=== PATIENT | female | born 1995 | race Caucasian/White ===

== ENCOUNTER 2017-07-02 18:13 | Emergency (ER) | payer SELFPAY, OTHER ==
[2017-07-02 19:12] LABS: URINE HCG POC HCG NEGATIVE (Negative)
== END 2017-07-02 19:13 | disposition home or self-care (01) ==
LOC: ER 18:13
DX: L02.01 Cutaneous abscess of face (principal); J45.909 Unspecified asthma, uncomplicated
CPT/HCPCS: 81025; 99283